=== PATIENT | male | born 1970 | race Caucasian/White ===

== ENCOUNTER 2018-07-22 11:18 | Emergency (ER) | payer BC, OTHER ==
[~2018-07-22] VITALS: Ht 187.9 cm; Wt 115.7 kg
[~2018-07-22 11:18] MED LIST: CEFADROXIL500 M1 PO; IBU800 MG PO; OXYCODONE HCL5 M1 PO
[2018-07-22] MEDS ORDERED: FLONASE ALLERG9.9 ML NAS (11:59)
[2018-07-22] MEDS ORDERED: CLARITIN10 MG PO (11:59)
[2018-07-22] MEDS ORDERED: PREDNISONE10 MG PO (11:59)
== END 2018-07-22 12:54 | disposition home or self-care (01) ==
LOC: ED 11:18
DX: B34.9 Viral infection, unspecified (principal); R03.0 Elevated blood-pressure reading, without diagnosis of hypertension; F17.210 Nicotine dependence, cigarettes, uncomplicated; Z91.041 Radiographic dye allergy status; Z91.013 Allergy to seafood; Z79.899 Other long term (current) drug therapy

== ENCOUNTER 2021-08-12 05:48 | Emergency (ER) | payer BC ==
[~2021-08-12 05:48] MED LIST changes: +CLARITIN10 MG PO; +FLONASE ALLERG9.9 ML NAS; +Motrin,Rufen800 MG PO; +PREDNISONE10 MG PO; +PREDNISONE20 M1 PO
[2021-08-12 06:33] LABS: BASO # 0.1 10*3/uL (0.0-0.1); EOS # 0.4 10*3/uL (0.0-0.4); EOS % 5.2 % (1.0-4.0); HEMATOCRIT 43.2 % (42.0-52.0); LYMPH # 2.1 10*3/uL (1.3-4.4); LYMPH % 30.6 % (27.0-41.0); MEAN CELL VOLUME 92.3 fl (80.0-94.0); MEAN CORPUSCULAR HGB CONC 33.6 g/dl (33.0-37.0); MEAN PLATELET VOLUME 9.4 fl (9.6-12.3); MONO % 13.9 % (3.0-9.0); NEUT # 3.4 10*3/uL (2.3-7.9); NEUT % 49.2 % (47.0-73.0); PLATELET COUNT AUTOMATED 348 10*3/uL (130-400); RED BLOOD COUNT 4.68 10*6/uL (4.50-5.90); RED CELL DISTRI WIDTH 14.9 % (0-14.5); WHITE BLOOD COUNT 6.9 10*3/uL (4.8-10.8)
[2021-08-12 06:43] LABS: ALBUMIN 3.2 gm/dl (3.1-4.5); ALKALINE PHOSPHATASE 56 U/L (45-117); BUN 14 mg/dl (7-24); CHLORIDE 114 mmol/L (98-107); CREATININE 0.76 mg/dL (0.70-1.30); POTASSIUM 4.5 mmol/L (3.5-5.1); SGOT/AST 21 IU/L (3-35); SGPT/ALT 23 U/L (12-78); SODIUM 144 mmol/L (136-145); TOTAL PROTEIN 6.8 gm/dL (6.4-8.2)
== END 2021-08-12 08:32 | disposition home or self-care (01) ==
LOC: ED 05:48
PROVIDERS: Internal Medicine
DX: R19.7 Diarrhea, unspecified (principal); Z98.84 Bariatric surgery status; Z91.041 Radiographic dye allergy status; Z91.013 Allergy to seafood; Z79.899 Other long term (current) drug therapy

== ENCOUNTER → 2023-10-25 | Outpatient (CLI) | payer BC | END | disposition home or self-care (01) | LOC: US 11:00 | PROVIDERS: ATTEND Nurse Practitioner Family | DX: M71.22 Synovial cyst of popliteal space [Baker], left knee (principal); M79.89 Other specified soft tissue disorders; M17.12 Unilateral primary osteoarthritis, left knee; M25.462 Effusion, left knee ==

== ENCOUNTER → 2024-09-04 | Day surgery (SDC) | payer BC ==
[~2024-09-04] VITALS: Ht 187.9 cm; Wt 106.6 kg
[~2024-09-04] MED LIST changes: +Lactated Ringer's Solution 1,000 ML IV ONE; +Lidocaine Hydrochloride 2% 5 ML SDV IV ONE; +OMEPRAZOLE40 MG PO; +PROPOFOL 200 MG/20 ML VIAL IV ONE; +ZOLOFT50 MG PO
[2024-09-04 08:19] VITALS: BP 145/61
[2024-09-04 08:50] VITALS: BP 126/765
[2024-09-04 09:05] VITALS: BP 136/75
[2024-09-04 09:20] VITALS: BP 146/74
== END | disposition home or self-care (01) ==
LOC: SDC 08-31 11:00
PROVIDERS: ATTEND Surgery
DX: Z12.11 Encounter for screening for malignant neoplasm of colon (principal); K57.30 Diverticulosis of large intestine without perforation or abscess without bleeding; K64.8 Other hemorrhoids; F17.210 Nicotine dependence, cigarettes, uncomplicated; K21.9 Gastro-esophageal reflux disease without esophagitis; E78.5 Hyperlipidemia, unspecified; F41.9 Anxiety disorder, unspecified; Z98.84 Bariatric surgery status; Z79.899 Other long term (current) drug therapy

== ENCOUNTER → 2024-10-09 | Outpatient (CLI) | payer BC ==
[~2024-10-09] MED LIST changes: -Lactated Ringer's Solution 1,000 ML IV ONE; -Lidocaine Hydrochloride 2% 5 ML SDV IV ONE; -PROPOFOL 200 MG/20 ML VIAL IV ONE
== END | disposition home or self-care (01) ==
LOC: CT 09-25 08:00
PROVIDERS: ATTEND Family Medicine
DX: Z12.2 Encounter for screening for malignant neoplasm of respiratory organs (principal); F17.210 Nicotine dependence, cigarettes, uncomplicated; I25.10 Atherosclerotic heart disease of native coronary artery without angina pectoris; Z98.890 Other specified postprocedural states